=== PATIENT | female | born 1950 | race Caucasian/White ===

== ENCOUNTER → 2018-02-25 | Outpatient (CLI) | payer OTHER | END | disposition home or self-care (01) | LOC: CVU 08:03 | PROVIDERS: ATTEND Internal Medicine Cardiovascular Disease | DX: I07.1 Rheumatic tricuspid insufficiency (principal); I34.8 Other nonrheumatic mitral valve disorders; I35.8 Other nonrheumatic aortic valve disorders; I11.9 Hypertensive heart disease without heart failure; Z87.891 Personal history of nicotine dependence | CPT/HCPCS: 0399T; 93306 ==

== ENCOUNTER → 2018-08-21 | Outpatient (CLI) | payer MEDICARE | END | disposition home or self-care (01) | LOC: CFH 09:20 | PROVIDERS: ATTEND Nurse Practitioner Primary Care | DX: N63.11 Unspecified lump in the right breast, upper outer quadrant (principal); Z80.3 Family history of malignant neoplasm of breast | CPT/HCPCS: 77065 ==

== ENCOUNTER → 2018-08-29 | Outpatient (CLI) | payer MEDICARE ==
[~2018-08-29] MED LIST: LIDOCAINE 1%, 20ML ONE; LIDOCAINE 1%-EPI 1:100K, 30ML ONE; SODIUM BICARBONATE 4.0%, 5ML ONE
== END | disposition home or self-care (01) ==
LOC: CFH 09:47
PROVIDERS: ATTEND Nurse Practitioner Primary Care
DX: D05.11 Intraductal carcinoma in situ of right breast (principal)
CPT/HCPCS: 19083; 77065; 88305; J3490

== ENCOUNTER → 2018-09-12 | Outpatient (CLI) | payer MEDICARE ==
[~2018-09-12] MED LIST changes: +ASPI-650 PO; +CHOL500015 PO; -LIDOCAINE 1%, 20ML ONE; -LIDOCAINE 1%-EPI 1:100K, 30ML ONE; +LOSA1TAB19 PO; -SODIUM BICARBONATE 4.0%, 5ML ONE; +TURM500C4 PO; +[UNRECOGNIZED DRUG - CODE] EACHEYE
[2018-09-12 10:50] LABS: ANION GAP 6 mmol/L (5-15); CALCIUM 9.3 mg/dL (8.5-10.1); CHLORIDE 111 mmol/L (98-107)
[2018-09-12 10:53] LABS: ALANINE AMINOTRANSFERASE 44 U/L (12-78); ALKALINE PHOSPHATASE 65 U/L (45-117); BILIRUBIN,TOTAL 0.7 mg/dL (0.2-1.0); CREATININE 1.12 mg/dL (0.55-1.02)
== END | disposition home or self-care (01) ==
LOC: STAR 09:36
PROVIDERS: ATTEND Surgery
DX: Z01.818 Encounter for other preprocedural examination (principal); Z85.3 Personal history of malignant neoplasm of breast
CPT/HCPCS: 36415; 80053; 93005

== ENCOUNTER → 2018-09-13 | Outpatient (CLI) | payer MEDICARE ==
[~2018-09-13] MED LIST changes: +LIDOCAINE 1%, 20ML ONE; +LIDOCAINE 1%-EPI 1:100K, 20ML ONE; +SODIUM BICARBONATE 4.0%, 5ML ONE
== END | disposition home or self-care (01) ==
LOC: CFH 08:31
PROVIDERS: ATTEND Surgery
DX: C50.911 Malignant neoplasm of unspecified site of right female breast (principal)
CPT/HCPCS: 19285; 77065; J3490

== ENCOUNTER 2018-09-16 06:03 | Day surgery (SDC) | payer MEDICARE ==
[~2018-09-16] VITALS: Ht 165.1 cm; Wt 136.0 kg
[~2018-09-16 06:03] MED LIST changes: -LIDOCAINE 1%, 20ML ONE; -LIDOCAINE 1%-EPI 1:100K, 20ML ONE; -SODIUM BICARBONATE 4.0%, 5ML ONE
[2018-09-16] MEDS ORDERED: LACTATED RINGERS 1,000 ML IV SCH (06:41)
[2018-09-16] MEDS ORDERED: MIDAZOLAM 1 MG/ML, 2ML ONE (07:07)
[2018-09-16] MEDS ORDERED: PROPOFOL 50 ML ONE (07:07)
[2018-09-16] MEDS ORDERED: FENTANYL PF 250 MCG/5ML ONE (07:07)
[2018-09-16] MEDS ORDERED: BUPIVACAINE/PF-EPI 0.5% 1:200K ONE (07:07)
[2018-09-16] MEDS ORDERED: CEFAZOLIN 1,000 MG ONE (07:20)
[2018-09-16] MEDS ORDERED: DEXAMETHASONE 4 MG/ML, 1ML ONE (07:20)
[2018-09-16] MEDS ORDERED: ONDANSETRON 2MG/ML, 2ML ONE (07:20)
[2018-09-16] MEDS ORDERED: DIPHENHYDRAMINE 50 MG/ML, 1ML IVPush PRN (08:00)
[2018-09-16] MEDS ORDERED: MIDAZOLAM 1 MG/ML, 2ML IV PRN (08:00)
[2018-09-16] MEDS ORDERED: PROMETHAZINE 25 MG/ML, 1ML IV PRN (08:00)
[2018-09-16] MEDS ORDERED: ONDANSETRON ODT 8 MG PO PRN (08:00)
[2018-09-16] MEDS ORDERED: DIAZEPAM 5 MG/ML, 2ML IVPush PRN (08:00)
[2018-09-16] MEDS ORDERED: OXYcodone 5 MG/5 ML ORAL.SOL UDC PO PRN (08:00)
[2018-09-16] MEDS ORDERED: ONDANSETRON 2MG/ML, 2ML IV PRN (08:00)
[2018-09-16] MEDS ORDERED: FENTANYL PF 100 MCG/2ML IV PRN (08:00)
[2018-09-16] MEDS ORDERED: MORPHINE SULFATE 4 MG/ML, 1ML IVPush PRN (08:00)
[2018-09-16] MEDS ORDERED: ACETAMINOPHEN 325 MG TABLET ONE (08:03)
[2018-09-16] MEDS ORDERED: ACETAMINOPHEN 325 MG TABLET PO PRN (08:30)
== END 2018-09-16 09:30 | disposition home or self-care (01) ==
LOC: OUT 06:03
PROVIDERS: ATTEND Surgery
DX: D05.11 Intraductal carcinoma in situ of right breast (principal); I10 Essential (primary) hypertension; D50.9 Iron deficiency anemia, unspecified; Z98.890 Other specified postprocedural states; Z79.82 Long term (current) use of aspirin; Z72.89 Other problems related to lifestyle; Z87.891 Personal history of nicotine dependence; Z88.8 Allergy status to other drugs, medicaments and biological substances; Z91.040 Latex allergy status
CPT/HCPCS: 19301; 76098; 88307; 88360; J0690; J1100; J2250; J2405; J2704; J3010; J7120

== ENCOUNTER → 2018-10-07 | Outpatient (CLI) | payer MEDICARE | END | disposition home or self-care (01) | LOC: ROC 08:21 | PROVIDERS: ATTEND Radiology Radiation Oncology | DX: C50.911 Malignant neoplasm of unspecified site of right female breast (principal); F17.210 Nicotine dependence, cigarettes, uncomplicated; Z79.82 Long term (current) use of aspirin; Z79.899 Other long term (current) drug therapy | CPT/HCPCS: 99214; G0463 ==

== ENCOUNTER 2019-04-25 10:59 | Outpatient (CLI) | payer MEDICARE ==
[~2019-04-25 10:59] MED LIST changes: +ASPI-496 PO; +[UNRECOGNIZED DRUG - CODE] EACHEYE; -[UNRECOGNIZED DRUG - CODE] EACHEYE
== END 2019-04-25 23:59 | disposition home or self-care (01) ==
LOC: CFH 10:59
PROVIDERS: ATTEND Surgery
DX: R92.2 Inconclusive mammogram (principal); D05.10 Intraductal carcinoma in situ of unspecified breast
CPT/HCPCS: 77066; G0279; 77063

== ENCOUNTER → 2020-09-20 | Outpatient (CLI) | payer MEDICARE ==
[~2020-09-20] MED LIST changes: +ASPI-1026 PO; -ASPI-650 PO; +LOSA1TAB22 PO; +PROP10DR2 EACHEYE; +TURMERIC CURCUMIN PO
== END | disposition home or self-care (01) ==
LOC: STAR 13:26
PROVIDERS: ATTEND Orthopaedic Surgery
DX: Z01.812 Encounter for preprocedural laboratory examination (principal); Z20.822 Contact with and (suspected) exposure to COVID-19
CPT/HCPCS: 93005; U0003; U0005

== ENCOUNTER 2020-09-24 05:31 | Day surgery (SDC) | payer MEDICARE ==
[~2020-09-24] VITALS: Ht 162.6 cm; Wt 135.0 kg
[2020-09-24 06:09] VITALS: BP 126/84
[2020-09-24] MEDS ORDERED: CHLORHEXIDINE 15 ML UDC PO ONE (06:30)
[2020-09-24] MEDS ORDERED: LACTATED RINGERS 1,000 ML IV SCH (06:30)
[2020-09-24] MEDS ORDERED: LIDOCAINE-MPF 1%, 2ML INFIL ONE (06:30)
[2020-09-24] MEDS ORDERED: BUPIVACAINE/PF 0.5% ONE (06:56)
[2020-09-24] MEDS ORDERED: EPINEPHRINE 1 MG/ML, 1ML ONE (06:56)
[2020-09-24] MEDS ORDERED: BACITRACIN 50,000 UNIT ONE (06:57)
[2020-09-24] MEDS ORDERED: LIDOCAINE/PF 1%, 30ML ONE (07:14)
[2020-09-24] MEDS ORDERED: FENTANYL PF 100 MCG/2ML ONE (07:21)
[2020-09-24] MEDS ORDERED: DIPHENHYDRAMINE 50 MG/ML, 1ML IVPush PRN (07:30)
[2020-09-24] MEDS ORDERED: MEPERIDINE/PF 25MG/0.5ML IVPush PRN (07:30)
[2020-09-24] MEDS ORDERED: PROMETHAZINE 25 MG/ML, 1ML IVPush PRN (07:30)
[2020-09-24] MEDS ORDERED: hydrALAzine 20 MG/ML, 1ML IV PRN (07:30)
[2020-09-24] MEDS ORDERED: HYDROmorphone 1 MG/ML, 1ML INJ IVPush PRN (07:30)
[2020-09-24] MEDS ORDERED: HALOPERIDOL 5 MG/ML IV PRN (07:30)
[2020-09-24] MEDS ORDERED: FENTANYL PF 100 MCG/2ML IV PRN (07:30)
[2020-09-24] MEDS ORDERED: LABETALOL 5MG/ML, 20ML IV PRN (07:30)
[2020-09-24] MEDS ORDERED: ACETAMINOPHEN 325 MG TABLET PO PRN (07:30)
[2020-09-24] MEDS ORDERED: OXYcodone 5 MG/5 ML ORAL.SOL UDC PO PRN (07:30)
[2020-09-24] MEDS ORDERED: MIDAZOLAM 1 MG/ML, 2ML ONE (07:41)
[2020-09-24] MEDS ORDERED: CEFAZOLIN 1,000 MG ONE ×2 (07:56)
[2020-09-24] MEDS ORDERED: DEXAMETHASONE 4 MG/ML, 1ML ONE (07:56)
[2020-09-24] MEDS ORDERED: ONDANSETRON 2MG/ML, 2ML ONE (07:56)
[2020-09-24] MEDS ORDERED: PROPOFOL 10 MG/ML, 20ML ONE (07:56)
== END 2020-09-24 09:25 | disposition home or self-care (01) ==
LOC: OUT 05:31
PROVIDERS: ATTEND Orthopaedic Surgery
DX: G56.03 Carpal tunnel syndrome, bilateral upper limbs (principal); I10 Essential (primary) hypertension; J45.909 Unspecified asthma, uncomplicated; M19.90 Unspecified osteoarthritis, unspecified site; E66.01 Morbid (severe) obesity due to excess calories; Z79.899 Other long term (current) drug therapy; Z85.3 Personal history of malignant neoplasm of breast; Z91.048 Other nonmedicinal substance allergy status; Z87.891 Personal history of nicotine dependence; Z82.61 Family history of arthritis; Z82.3 Family history of stroke; Z82.49 Family history of ischemic heart disease and other diseases of the circulatory system
CPT/HCPCS: 29848; J0171; J0690; J1100; J2250; J2405; J2704; J3010; J7120